=== PATIENT | male | born 1985 | race Caucasian/White ===

== ENCOUNTER 2023-03-15 15:05 | Emergency (ER) | payer BC ==
[~2023-03-15] VITALS: Ht 172.7 cm; Wt 86.9 kg
[2023-03-15] MEDS ORDERED: ACET-897 PO (15:31)
[2023-03-15] MEDS ORDERED: ACETAMINOPHEN 500 MG TAB PO ONE (16:20)
[2023-03-15] MEDS ORDERED: METOCLOPRAMIDE INJ 10MG/2ML VIAL IV ONE (16:20)
[2023-03-15] MEDS ORDERED: IBUPROFEN 600MG TAB PO ONE (16:20)
[2023-03-15] MEDS ORDERED: ISOVUE-370 76% 100ML VIAL As Ordered ONE (16:46)
[2023-03-15 17:21] LABS: BASO % 0.3 % (0.0-1.0); EOS # 0.1 10^3/uL (0.0-0.5); EOS % 0.8 % (0.0-3.0); HEMATOCRIT 44.7 % (42.0-52.0); HEMOGLOBIN 15.4 g/dl (13.5-17.5); LYMPH # 1.8 10^3/uL (1.5-5.0); LYMPH % 18.6 % (24.0-44.0); MEAN CORPUSCULAR HEMOGLOBIN 31.7 pg (27.0-33.0); MEAN CORPUSCULAR HGB CONC 34.5 g/dl (32.0-36.5); MONO # 0.9 10^3/uL (0.0-0.8); MONO % 9.1 % (2.0-8.0); NEUTROPHILS # 6.7 10^3/uL (1.5-8.5); NEUTROPHILS % 70.8 % (36.0-66.0); PLATELET COUNT, AUTOMATED 257 10^3/uL (150-450); RED BLOOD COUNT 4.86 10^6/uL (4.30-6.10); WHITE BLOOD COUNT 9.5 10^3/uL (4.0-10.0)
[2023-03-15 17:22] LABS: CK-MB VALUE MASS < 1.0 NG/ML (<3.6)
[2023-03-15 17:24] LABS: CPK CREATINE PHOSPHOKINASE 80 U/L (46-171); MB/CK RELATIVE INDEX 1.25 (< OR =4)
[2023-03-15] MEDS ORDERED: MORPHINE 2 MG/ML 1ML VIAL IV PRN (17:25)
[2023-03-15 17:35] LABS: ERYTHROCYTE SEDIMENTATION RATE 12 mm/hr (0-15)
[2023-03-15 17:36] LABS: INR 0.9; PROTHROMBIN TIME 12.3 SECONDS (12.5-14.5)
[2023-03-15 17:37] LABS: PARTIAL THROMBOPLASTIN TIME 30.6 SECONDS (24.8-34.2)
[2023-03-15] MEDS ORDERED: NS 1,000 ML IV ONE (17:50)
[2023-03-15] MEDS ORDERED: PROHANCE 279.3MG/ML 5ML VIAL As Ordered ONE (18:14)
[2023-03-15] MEDS ORDERED: PROHANCE 279.3MG/ML 15ML VIAL As Ordered ONE (18:14)
[2023-03-15] MEDS ORDERED: TOPA1TAB PO (20:16)
[2023-03-15] MEDS ORDERED: TOPIRAMATE (TopAMAX) 25 MG TAB PO ONE (20:20)
[2023-03-15] MEDS ORDERED: NORCO 5/325MG TABLET (HOME DOSE PACK) PO ONE (20:25)
[2023-03-15 20:30] VITALS: BP 125/81
[2023-03-15 20:40] VITALS: TEMP 98.3; O2SAT 97
== END 2023-03-15 20:51 | disposition home or self-care (01) ==
LOC: M ED 15:05
DX: G43.909 Migraine, unspecified, not intractable, without status migrainosus (principal); J34.89 Other specified disorders of nose and nasal sinuses; I66.23 Occlusion and stenosis of bilateral posterior cerebral arteries; R94.09 Abnormal results of other function studies of central nervous system
CPT/HCPCS: 70450; 70496; 70498; 70553; 71045; 80047; 82550; 82553; 84484; 85025; 85610; 85652; 85730; 86850; 86900; 86901; 93005; 93041; 94760; 96361; 96374; 96375; 99285; A9576; J2765; Q9967